=== PATIENT | male | born 1990 | race Caucasian/White ===

== ENCOUNTER 2023-09-05 21:30 | Emergency (ER) | payer BC, SELFPAY ==
[2023-09-05 21:34] VITALS: BP 144/84; PULSE 114; TEMP 37.1; O2SAT 98; BMI 21.2
[2023-09-05 21:43] VITALS: O2SAT 98
--- NOTE | 2023-09-05 21:46 | XR_ITS ---
The [address] [address] Patient Name: GUERRERO GALVAN MRN: [id number] date: 1990 Sex: M Assigned Patient Location: ER Current Patient Location: Accession/Order Number: [id number] Exam Date: 09/05/2023 21:50 Report Date: 09/06/2023 00:25 At the request of: BUCK MARKER Procedure: XR chest 2V CHEST X-RAY, TWO VIEWS HISTORY: Cough. COMPARISON: None. FINDINGS: The heart, irene, and mediastinum are unremarkable. The lungs are grossly clear. There are no pleural effusions. There is no pneumothorax. XR/XR chest 2V IMPRESSION: No evidence of acute cardiopulmonary disease. Electronically authenticated by: EVELIO HERRON Date: 09/06/2023 00:25
--- NOTE | 2023-09-05 21:47 | ED.URI1 ---
HPI - URI/Sore Throat General Chief Complaint: Upper Respiratory Infection Stated Complaint: CHEST PRESSURE Time Seen by Provider: 09/05/23 21:32 Source: patient History of Present Illness HPI Narrative: This 32-year-old male, non-smoker presents for evaluation and concern that he has pneumonia. He states for the past several days he has been having intermittent sore throat and chest congestion. He has a history of asthma. He does not smoke. He has not had a fever. He denies any cough. He states he has been diagnosed with bronchitis and pneumonia in the past. He states he is concerned that he has pneumonia because he has had pneumonia in the past despite not having a fever. He denies any chest pain dizziness or syncope. He occasionally has a dry cough but no productive cough. He has been using several [id number] remedies such as N-acetylcysteine, bromelaid (?) and another OTC remedy that he states is supposed to help your lung function. He believes that is helping him. He denies any nausea vomiting or diarrhea. He has no lower extremity pain or swelling. Related Data Home Medications ?Medication ?Instructions ?Recorded ?Confirmed No Known Home Medications 09/05/23 09/05/23 Allergies Allergy/AdvReac Type Severity Reaction Status Date / Time No Known Drug Allergies Allergy Verified 09/05/23 21:37 Review of Systems ROS Status of ROS 10 or more systems reviewed and unremarkable except as noted in history and below Exam Narrative Exam Narrative: Vital signs and Nursing Notes reviewed: Patient is afebrile, tachycardic, blood pressure is elevated 144/84, he is not hypoxic with pulse ox of 98% on room air General: Awake, alert, oriented, no acute distress, thin adult male, anxious with rapid pressured speech, no respiratory distress HEENT: Normocephalic atraumatic, mucous membranes are moist and pink, eyes are clear, normal conjunctiva, vision is grossly intact, posterior pharynx is normal in appearance. Neck: Supple, no meningeal signs, no anterior or posterior cervical lymphadenopathy Chest: Lungs are clear to auscultation with good air entry, there is no wheezing rhonchi or rales appreciated no accessory muscle use, patient is speaking in complete sentences-no chest wall tenderness to palpation, pulse ox is normal at 98% on room air CVS: Regular rate and rhythm S1-S2, no murmurs rubs or gallops, pulses are brisk and equal bilaterally, tachycardic at triage with a pulse of 114, pulse on my exam was 90 and regular with no ectopy ABD: Soft, nondistended, nontender, no rebound guarding or rigidity, bowel sounds are normal, no pulsatile masses appreciated Extremities: Moving all extremities, no lower extremity tenderness or swelling noted, negative Homans' sign, pulses are brisk and equal bilaterally Skin: Normal in appearance without rash,pallor, petechiae or purpura Neuro: No focal deficits Constitutional Vital Signs, click to edit/add: Last Vital Signs Temp 98.7 F 09/05/23 21:34 Pulse 87 09/05/23 22:39 Resp 16 09/05/23 22:39 BP 120/68 09/05/23 22:39 Pulse Ox 97 09/05/23 22:39 O2 Del Method Room Air 09/05/23 21:43 Course Vital Signs Vital signs: Vital Signs Temperature 98.7 F 09/05/23 21:34 Pulse Rate 114 H 09/05/23 21:34 Respiratory Rate 16 09/05/23 21:34 Blood Pressure 144/84 H 09/05/23 21:34 Pulse Oximetry 98 09/05/23 21:34 Oxygen Delivery Method Room Air 09/05/23 21:34 Temperature 98.7 F 09/05/23 21:34 Pulse Rate 87 09/05/23 22:39 Respiratory Rate 16 09/05/23 22:39 Blood Pressure 120/68 09/05/23 22:39 Pulse Oximetry 97 09/05/23 22:39 Oxygen Delivery Method Room Air 09/05/23 21:43 MDM - URI/Sore Throat MDM Narrative Medical decision making narrative: This 32-year-old male presents for evaluation of several days of intermittent sore throat, dry cough and chest congestion. He is concerned that he has pneumonia. He has no productive sputum. No fever. No chest pain. He refused COVID-19 and other testing stating he does not like anything to be put in his nose. His vital signs were normal with exception of an elevated pulse upon arrival that had improved by the time I saw him and were normal by the time he was discharged. His lungs are clear, abdomen is soft. Posterior pharynx is normal. Chest x-ray was ordered and is negative for acute findings. This was discussed with the patient who stated to me that he has mystified I explained to him that you can have upper respiratory symptoms without developing pneumonia and he should continue drinking plenty of fluids taking his supplements and following up closely with his family physician. No antibiotics, steroids, beta agonist or other medications were indicated Medical Records Medical records narrative: The [address] [address] XRay Report Signed Patient: GUERRERO GALVAN MR#: [id number] : 1990 Acct:[id number] Age/Sex: 32 / M ADM Date: 09/05/23 Loc: ER Attending Dr: Ordering Physician: Tori Ortiz Date of Service: 09/05/23 Procedure(s): XR chest 2V Accession Number(s): [id number] cc: Tori Ortiz; Physician,Non-Staff M.DKimberly~ The [address] [address] Patient Name: GUERRERO GLAVAN MRN: [id number] date: 1990 Sex: M Assigned Patient Location: ER Current Patient Location: Accession/Order Number: [id number] Exam Date: 09/05/2023 21:50 Report Date: 09/06/2023 00:25 At the request of: TORI ORTIZ Procedure: XR chest 2V CHEST X-RAY, TWO VIEWS HISTORY: Cough. COMPARISON: None. FINDINGS: The heart, irene, and mediastinum are unremarkable. The lungs are grossly clear. There are no pleural effusions. There is no pneumothorax. XR/XR chest 2V IMPRESSION: No evidence of acute cardiopulmonary disease. Electronically authenticated by: EVELIO HERRON Date: 09/06/2023 00:25 Discharge Plan Discharge Stand Alone Forms: Portal Instructions Chief Complaint: Upper Respiratory Infection Clinical Impression: Upper respiratory infection Patient Disposition: Home, Self-Care Time of Disposition Decision: 22:38 Mode of Transportation: Private Vehicle Prescriptions / Home Meds: No Action No Known Home Medications Print Language: Slovenian Instructions: Upper Respiratory Infection (ED) Referrals: Physician,Non-Staff, MD [Primary Care Provider] - 1 week Discharge Date/Time: 09/05/23 22:52
[2023-09-05 22:39] VITALS: BP 120/68; PULSE 87; O2SAT 97
== END 2023-09-05 22:52 | disposition home or self-care (01) ==
PROVIDERS: Emergency Provider Emergency Medicine
DX: J06.9 Acute upper respiratory infection, unspecified (principal)
CPT/HCPCS: 71046; 99283